=== PATIENT | male | born 1950 | race Caucasian/White ===

== ENCOUNTER → 2016-08-24 | Outpatient (CLI) | payer OTHER | LOC: FIMAGING 14:14 | PROVIDERS: ATTEND Family Medicine | DX: R20.2 Paresthesia of skin (principal); M62.81 Muscle weakness (generalized); M50.30 Other cervical disc degeneration, unspecified cervical region; M43.12 Spondylolisthesis, cervical region ==

== ENCOUNTER → 2016-11-28 | Outpatient (CLI) | payer OTHER ==
[~2016-11-28] MED LIST: REGADENOSON 0.4 MG/5 ML SYR IVP ONE
--- NOTE | 2016-11-29 05:50 | CPR ---
[f rep st] NONINVASIVE CARDIAC PROCEDURE REPORT PROCEDURE: Lexiscan injection of Lexiscan myocardial perfusion imaging study. SUPERVISING [employer] WORKER: Delicia Cramer MD INDICATION FOR PROCEDURE: Presurgical evaluation for vascular surgery, known history of peripheral v ascular disease and multiple cardiac risk factors. PRE: After obtaining informed consent, ensuring patient's n.p.o. status of caffeine for greater than 12 hours, patient was placed on electrocardiogram. Initial EKG showed sinus rhythm, normal axis, no nspecific T wave abnormalities in inferior leads. Patient denies any chest pain, shortness of breath , or symptoms suggesting ischemia. Initial blood pressure was 172/80, saturation 98%. INJECTION: Patient was given Lexiscan slow IV push, followed by nuclear isotope. Patient was noted within 1 minute of having a mild drop in blood pressure at 116/82. No significant EKG changes. Alexandra ent remained asymptomatic. Within 5 minutes of injection, blood pressure returned back to pre-inject ion blood pressure, vital signs remained stable. No significant EKG changes. Patient remained asymp tomatic of any symptoms suggesting ischemia. IMPRESSION: A 66-year-old male to undergo femoral-popliteal bypasses with multiple cardiac risk fact ors and abnormal electrocardiogram, being pre-evaluated for cardiac ischemia. No significant EKG jose eduardo nges with Lexiscan injection. Patient noted to be mildly hypertensive on admission. Patient is asym ptomatic, vital signs are stable, and he will finish post myocardial perfusion imaging injection in [facility] at this time. 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 /[id number]/MODL
== END ==
LOC: FIMAGING 12:44
PROVIDERS: ATTEND Internal Medicine Cardiovascular Disease
DX: Z01.818 Encounter for other preprocedural examination (principal); R06.02 Shortness of breath; I70.209 Unspecified atherosclerosis of native arteries of extremities, unspecified extremity
CPT/HCPCS: 78452; 93017; A9500; J2785

== ENCOUNTER → 2017-07-04 | Outpatient (CLI) | payer OTHER | LOC: FIMAGING 09:24 | PROVIDERS: ATTEND Nurse Practitioner | DX: B18.2 Chronic viral hepatitis C (principal); K74.60 Unspecified cirrhosis of liver; Z20.2 Contact with and (suspected) exposure to infections with a predominantly sexual mode of transmission ==

== ENCOUNTER → 2018-01-28 | Outpatient (CLI) | payer OTHER | LOC: FIMAGING 10:13 | PROVIDERS: ATTEND Nurse Practitioner | DX: K74.60 Unspecified cirrhosis of liver (principal); B18.2 Chronic viral hepatitis C; D69.6 Thrombocytopenia, unspecified ==